=== PATIENT | male | born 2000 | race Two or more races ===

== ENCOUNTER 2024-06-27 19:14 | Emergency (ER) | payer MEDICAID, OTHER ==
[~2024-06-27] VITALS: Ht 177.8 cm; Wt 86.4 kg
[2024-06-27 19:27] VITALS: BP 134/85; RESP 20; O2SAT 99
[2024-06-27] MEDS ORDERED: SODIUM CHLORIDE 0.9% 1,000 ML IV ONE (19:45)
[2024-06-27 19:50] LABS: Urine Bacteria None Seen /hpf (None Seen)
[2024-06-27 19:58] VITALS: PULSE 95
--- NOTE | 2024-06-27 19:58 | ED.PDOC ---
History of Present Illness HPI Comments 23 y/o M, with a Hx of polysubstance abuse, is BIBA for medical evaluation s/p polysubstance overdose, today. Per EMS report, patient's friends called at 1838 after he became unresponsive after using fentanyl and cocaine, earlier, this evening. On scene arrival at 1845, EMS staff noted on patient being alert and awake and back to his normal baseline after aforementioned friends administered 4mg of IN Narcan and performed CPR on him for, approximately, 2 minutes in duration before he came-to. Patient was stated to have a blood glucose of 135 and all his vitals stable and within normal limits then and en route to ED. Upon arrival to ED facility, patient admits to using cocaine in addition to smoking fentanyl for the first time, this evening, and has no recollection of events, with exception of waking upon the floor. He complains of only a headache, currently, and reports no further relevant or pertinent Hx, such as additional illicit substance use. Patient denies having any vision or speech changes, chest pain, shortness of breath, nausea, vomiting, or other associated symptoms or modifiers at this time. Chief Complaint: Overdose Time Seen by MD: 19:30 Reviewed Notes: Nurses Notes, Grizzly Worker Notes, Medications, Allergies Information Source: Patient, Emergency Med Personnel Mode of Arrival: EMS Severity: Moderate Timing: Hours Duration: Minutes Prehospital treatment: 12 Lead EKG, Accucheck (135), Cane Stripper Review of Systems: REVIEW OF SYSTEMS: No fever, no chills, or fatigue HEENT: No sore throat, no earache, no congestion, no neck pain. Cardiac: No chest pain. No palpitations. Lungs: No shortness of breath, no cough. GI: No nausea, no vomiting, no diarrhea, no constipation, no abdominal pain : No dysuria, frequency, or urgency. No hematuria. Musculoskeletal: No joint pain , no joint swelling, no extremity edema. Skin: No rash, no itching. Neuro: Headache, no dizziness, no weakness Vital Signs Vital Signs Date Time Temp Pulse Resp B/P (MAP) Pulse Ox O2 Delivery O2 Flow Rate FiO2 06/27/24 19:58 95 06/27/24 19:27 97.8 20 134/85 (101) 99 Physical Exam General: Awake, alert and oriented. No acute distress. Skin: Skin in warm, dry and intact. Appropriate color for ethnicity. Nailbeds pink with no cyanosis. HEENT: The head is normocephalic and atraumatic. Conjunctivae are clear without exudates or hemorrhage. Sclera is non-icteric. EOM are intact. No signs of nystagmus. Eyelids are normal in appearance without swelling or lesions. Oral mucosa is pink and moist Neck: The neck is supple with normal range of motion. No JVD. Cardiac: Heart rate and rhythm are normal. No murmurs, gallops, or rubs are auscultated. No chest wall tenderness to palpation. Respiratory: No signs of respiratory distress. Lung sounds are clear in all lobes bilaterally without rales, ronchi, or wheezes. Abdominal: Abdomen is soft, non-tender without distention. Bowel sounds are present and normoactive in all four quadrants. Extremities: Upper and lower extremities are atraumatic in appearance without deformity or edema. Neurological: The patient is awake, alert and oriented to person, place, and time with normal speech. Speech is clear. There is no facial asymmetry. Psychiatric: Appropriate mood and affect. Good judgement and insight. No visual or auditory hallucinations. Past Medical History PAST MEDICAL HISTORY: Denies Surgical History: Denies all surgeries Family History Family History: Unknown Social History Smoker: Cigarettes Alcohol: Denies ETOH Use Drugs: Cocaine, Marijuana, Other (fentanyl ) Lives In: Home Was a procedure done? Was a procedure done?: No EKG EKG : Pulse Rate (adult): 95 [place]: Normal Cardiac Rhythm: NSR Block: None Hypertrophy: None ST: Normal Differential Dx Considerations may include: polysubstance abuse, polysubstance overdose, opioid overdose X-Ray, Labs, Meds, VS Vital Signs Date Time Temp Pulse Resp B/P (MAP) Pulse Ox O2 Delivery O2 Flow Rate FiO2 06/27/24 19:58 95 06/27/24 19:32 95 06/27/24 19:27 97.8 104 20 134/85 (101) 99 Lab Test 06/27/24 19:50 Range/Units Urine Color Light-yellow Yellow Urine Clarity Clear Clear Urine pH 6.5 5.0-9.0 Urine Specific [place] 1.008 1.001-1.035 Urine Protein 1+ H Negative Urine Ketones Negative Negative Urine Blood Negative Negative /uL Urine Nitrite Negative Negative Urine Bilirubin Negative Negative Urine Urobilinogen Normal Negative mg/dL Urine Leukocyte Esterase Negative Negative /uL Urine RBC <1 0 - 3 /hpf Urine WBC 1 0 - 3 /hpf Urine Squamous Epithelial Cells None seen <5 /hpf Urine Amorphous Crystals Few None Seen /hpf Urine Bacteria None seen None Seen /hpf Urine Hyaline Casts Few 0 - 2 /lpf Urine Glucose Normal Normal mg/dL Time of 1ST Reevaluation: 20:00 Reevaluation 1ST: Unchanged Patient Education/Counseling: Diagnosis, Treatment Family Education/Counseling: No Family Present Departure 1 Departure Time of Disposition: 21:04 Impression: Primary Impression: Eloped from emergency department Additional Impression: Accidental fentanyl overdose Disposition: LEFT AWOL/ELOPED Condition: Stable Comments 23-year-old male with fentanyl and cocaine overdose presents to the emergency department after loss of consciousness and CPR performed by bystanders. Discussed with patient risk of Narcan wearing off and return of respiratory depression requiring any further doses of Narcan. Patient voiced understanding. Unfortunately he eloped from the emergency department prior to re-evaluation in completing adequate observation. Critical Care Note Critical Care Time?: No Stability Stability form required: No Heart Score Heart Score: Heart Score Response (Comments) Value History N/A 0 EKG N/A 0 Age N/A 0 Risk Factors N/A 0 Troponin N/A 0 Total 0 I personally scribed for EMILY RITCHIE MD ([email or web address]) on 06/27/24 at 19:58. Electronically submitted by Crispin Brown [email or web address]). EMILY RITCHIE MD Jun 27, 2024 19:58
[2024-06-27 20:40] LABS: Urine Amorphous Crystal FEW /hpf (None Seen); Urine Blood Negative /uL (Negative); Urine Clarity Clear (Clear); Urine Color Light-Yellow (Yellow); Urine Hyaline Cast FEW /lpf (0 - 2); Urine Protein, UAD 1+ (Negative); Urine Specific Gravity 1.008 (1.001-1.035); Urine Squamous Epithelial Cell None Seen /hpf (<5); Urine Urobilinogen Normal (Negative); Urine WBC 1 /hpf (0 - 3); Urine pH 6.5 (5.0-9.0)
--- NOTE | 2024-06-28 09:51 | ECG ---
[facility] Test Date: 2024-06-27 Test Time: 19:32:37 Pat Name: BUSTER MEJIA-CORREADepartment: ED Room: Gender: M Director Of Reimbursement: EILEEN : 2000 Requested By: EMILY RITCHIE Order Number: [id number] Reading MD: Measurements Intervals [place] Rate: 95 P: 48 WA: 126 QRS: 59 QRSD: 93 T: 54 QT: 366 QTc: 460 Interpretive Statements Sinus rhythm ST elevation suggests acute pericarditis Please click the below link to view image of tracing.
== END 2024-06-27 20:25 | disposition left against medical advice (07) ==
LOC: ER 19:14 → EDBD 19:14 → ER 20:25
DX: T40.411A Poisoning by fentanyl or fentanyl analogs, accidental (unintentional), initial encounter (principal); F17.210 Nicotine dependence, cigarettes, uncomplicated; Z79.899 Other long term (current) drug therapy; Z53.29 Procedure and treatment not carried out because of patient's decision for other reasons; Y92.89 Other specified places as the place of occurrence of the external cause
CPT/HCPCS: 81001; 93005